=== PATIENT | female | born 1995 | race African-American/Black ===

== ENCOUNTER 2020-11-13 20:00 | Emergency (ER) | payer OTHER | END 2020-11-13 21:33 | disposition home or self-care (01) | LOC: ERS 20:00 | DX: S16.1XXA Strain of muscle, fascia and tendon at neck level, initial encounter (principal); S29.012A Strain of muscle and tendon of back wall of thorax, initial encounter; S09.90XA Unspecified injury of head, initial encounter; V89.2XXA Person injured in unspecified motor-vehicle accident, traffic, initial encounter | CPT/HCPCS: 70450; 72040; 72072; 72125 ==